=== PATIENT | female | born 2000 | race Caucasian/White ===

== ENCOUNTER 2021-07-01 21:00 | Inpatient (IN) | payer OTHER ==
[~2021-07-01] VITALS: Ht 152.4 cm; Wt 86.2 kg
[2021-07-03] MEDS ORDERED: PRENATAL CAPLE1 EAC1 PO (07:57)
== END 2021-07-04 12:15 | disposition home or self-care (01) | DRG 832 ==
LOC: OBS/DEL 21:00 → LDR 07-02 20:14 → OBS/DEL 07-02 20:14 → LDR 07-04 12:15
PROVIDERS: ADMIT Obstetrics & Gynecology Obstetrics; ATTEND Obstetrics & Gynecology Obstetrics
PROC: 4A1HXFZ Monitoring of Products of Conception, Cardiac Rhythm, External Approach (ICD-10-PCS; principal; 2021-07-02)
DX: O23.43 Unspecified infection of urinary tract in pregnancy, third trimester (principal); N39.0 Urinary tract infection, site not specified; Z3A.36 36 weeks gestation of pregnancy

== ENCOUNTER 2021-07-14 10:53 | Inpatient (IN) | payer OTHER ==
[~2021-07-14] VITALS: Ht 152.4 cm; Wt 3.2 kg
[~2021-07-14 10:53] MED LIST: PRENATAL CAPLE1 EAC1 PO
[2021-07-15] MEDS ORDERED: LEVOTHYROXINE25 MCG PO (10:21)
[2021-07-15] MEDS ORDERED: IRON325 MG PO (10:21)
== END 2021-07-23 12:29 | disposition home or self-care (01) | DRG 786 ==
LOC: OBS/DEL 10:53 → LDR 07-15 09:31 → OBS/DEL 07-15 09:31 → LDR 07-16 13:49 → OB/GYN 07-21 13:11
PROVIDERS: ADMIT Obstetrics & Gynecology Obstetrics; ATTEND Obstetrics & Gynecology Obstetrics
PROC: B24BZZZ Ultrasonography of Heart with Aorta (ICD-10-PCS; 2021-07-14)
PROC: 4A1HXFZ Monitoring of Products of Conception, Cardiac Rhythm, External Approach (ICD-10-PCS; 2021-07-15)
PROC: BY4FZZZ Ultrasonography of Third Trimester, Single Fetus (ICD-10-PCS; 2021-07-16)
PROC: 10D00Z1 Extraction of Products of Conception, Low, Open Approach (ICD-10-PCS; principal; 2021-07-20 12:15)
DX: O76 Abnormality in fetal heart rate and rhythm complicating labor and delivery (principal); O99.42 Diseases of the circulatory system complicating childbirth; O75.3 Other infection during labor; N39.0 Urinary tract infection, site not specified; R00.0 Tachycardia, unspecified; O99.52 Diseases of the respiratory system complicating childbirth; J06.9 Acute upper respiratory infection, unspecified; J45.909 Unspecified asthma, uncomplicated; O99.284 Endocrine, nutritional and metabolic diseases complicating childbirth; E03.9 Hypothyroidism, unspecified; Z3A.38 38 weeks gestation of pregnancy; Z37.0 Single live birth

== ENCOUNTER 2024-01-19 15:21 | Outpatient (CLI) | payer OTHER ==
[~2024-01-19 15:21] MED LIST changes: +IRON325 MG PO; +LEVOTHYROXINE25 MCG PO
== END 2024-01-19 15:23 | disposition home or self-care (01) ==
LOC: PRENATAL 15:21
PROVIDERS: ATTEND Obstetrics & Gynecology Maternal & Fetal Medicine
DX: O35.9XX0 Maternal care for (suspected) fetal abnormality and damage, unspecified, not applicable or unspecified (principal); O35.3XX0 Maternal care for (suspected) damage to fetus from viral disease in mother, not applicable or unspecified; O44.02 Complete placenta previa NOS or without hemorrhage, second trimester; O34.219 Maternal care for unspecified type scar from previous cesarean delivery; O99.282 Endocrine, nutritional and metabolic diseases complicating pregnancy, second trimester; O99.212 Obesity complicating pregnancy, second trimester; O99.891 Other specified diseases and conditions complicating pregnancy; Z3A.19 19 weeks gestation of pregnancy

== ENCOUNTER 2024-04-03 03:15 | Outpatient (CLI) | payer OTHER ==
[~2024-04-03] VITALS: Ht 154.9 cm; Wt 80.3 kg
[2024-04-03 02:08] VITALS: BP 105/74; O2SAT 97
[2024-04-03] MEDS ORDERED: PRENATAL TABLE1 EAC1 PO (03:27)
[2024-04-03] MEDS ORDERED: HIERRO PO (03:27)
[2024-04-03] MEDS ORDERED: RINGERS SOLUTION,LACTATED 1,000 ML IV SCH (03:30)
[2024-04-03 03:47] LABS: URINE APPEARANCE Clear; URINE BACTERIA 47.8 uL (0.0-1933); URINE BILIRRUBIN Negative (NEGATIVE); URINE BLOOD Negative; URINE COLOR Yellow; URINE EPITHELIAL CELLS 28.7 uL (0.0-38.8); URINE GLUCOSE Negative (NEGATIVE); URINE KETONE Negative (NEGATIVE); URINE LEUKOCYTE Negative; URINE NITRATE Negative; URINE PROTEIN Negative (NEGATIVE); URINE UROBILINOGEN 0.2 E.U./dl; URINE WBC 5.2 uL (0.0-23.2)
[2024-04-03 03:47] LABS: HEMATOCRIT 27.4 % (36.0-45.00); HEMOGLOBIN 9.3 g/dL (12.0-15.00); MEAN CELL VOLUME 78.6 fL (80.00-100.00); MEAN CORPUSCULAR HEMOGLOBIN 26.6 pg (27.00-32.0); MEAN CORPUSCULAR HGB CONC 33.8 g/dl (32.0-36.0); PLATELET COUNT 235 K/uL (150-450); RED BLOOD COUNT 3.49 M/uL (4.00-6.00); RED CELL DISTRIBUTION WIDTH 14.6 % (11.5-14.5)
[2024-04-03 03:51] LABS: URINE RBC 0.7 uL (0.0-20.8)
[2024-04-03 04:10] LABS: ALBUMIN 2.4 gm/dL (3.4-5.0); BILIRUBIN TOTAL 0.11 mg/dL (0.3-1.2); CALCIUM 8.7 mg/dL (8.5-10.1); CREATININE SERUM 0.48 mg/dL (0.55-1.02); GFR 158.89; GLOBULINA 3.3 G/DL (2.4-3.5); POTASSIUM 4.02 mEq/L (3.5-5.1); TOTAL PROTEIN 5.7 gm/dL (6.4-8.2)
[2024-04-03] MEDS ORDERED: LEVOTHYROXINE SODIUM 25 MCG TABLET PO SCH (06:00)
[2024-04-03 07:35] VITALS: BP 107/72
[2024-04-03 11:24] VITALS: BP 95/67
== END 2024-04-03 13:14 | disposition left against medical advice (07) ==
LOC: OBS/DEL 03:15
PROVIDERS: Specialist; ATTEND Obstetrics & Gynecology Obstetrics
DX: O36.8130 Decreased fetal movements, third trimester, not applicable or unspecified (principal); Z3A.30 30 weeks gestation of pregnancy; R10.2 Pelvic and perineal pain

== ENCOUNTER 2024-05-25 14:49 | Inpatient (IN) | payer OTHER ==
[~2024-05-25] VITALS: Ht 152.4 cm; Wt 88.9 kg
[~2024-05-25 14:49] MED LIST changes: +HIERRO PO; +PRENATAL TABLE1 EAC1 PO
[2024-05-25] MEDS ORDERED: RINGERS SOLUTION,LACTATED 1,000 ML IV SCH (15:00)
[2024-05-25 15:05] VITALS: BP 111/73
[2024-05-25 16:50] LABS: HEMATOCRIT 32.9 % (36.0-45.00); HEMOGLOBIN 10.5 g/dL (12.0-15.00); MEAN CELL VOLUME 78.8 fL (80.00-100.00); MEAN CORPUSCULAR HEMOGLOBIN 25.2 pg (27.00-32.0); PLATELET COUNT 207 K/uL (150-450); RED BLOOD COUNT 4.17 M/uL (4.00-6.00); RED CELL DISTRIBUTION WIDTH 16.3 % (11.5-14.5)
[2024-05-25 16:51] LABS: PH,URINE 6.5 (5.0-8.0); URINE APPEARANCE Clear; URINE BILIRRUBIN Negative (NEGATIVE); URINE BLOOD Negative; URINE COLOR Yellow; URINE GLUCOSE Negative (NEGATIVE); URINE KETONE Negative (NEGATIVE); URINE LEUKOCYTE Trace; URINE NITRATE Negative; URINE PROTEIN Trace (NEGATIVE)
[2024-05-25 16:57] LABS: URINE BACTERIA 418.2 uL (0.0-1933); URINE EPITHELIAL CELLS 77.7 uL (0.0-38.8)
[2024-05-25 17:04] LABS: URINE RBC 1.2 uL (0.0-20.8)
[2024-05-25 17:12] LABS: ALBUMIN 2.5 gm/dL (3.4-5.0); BILIRUBIN TOTAL 0.19 mg/dL (0.3-1.2); CALCIUM 8.7 mg/dL (8.5-10.1); CREATININE SERUM 0.49 mg/dL (0.55-1.02); GFR 155.16; GLOBULINA 3.5 G/DL (2.4-3.5); POTASSIUM 4.41 mEq/L (3.5-5.1)
[2024-05-25 17:13] LABS: INR 0.94; PARTIAL THROMBOPLASTIN TIME 28.3 SECONDS (22.0-34.0); PROTHROMBIN TIME 10.3 SECONDS (9.0-11.5)
[2024-05-25] MEDS ORDERED: OXYTOCIN 10 UNITS/ML VIAL IV ONE (19:45)
[2024-05-25] MEDS ORDERED: ERYTHROMYCIN BASE OPHT 1GM EACH TUBE OP ONE (19:45)
[2024-05-25] MEDS ORDERED: MORPHINE SULFATE 4 MG/ML CARTRIDGE IV PRN (20:30)
[2024-05-25] MEDS ORDERED: MORPHINE SULFATE 4 MG/ML VIAL IV ONE ×2 (21:40→22:30)
[2024-05-25] MEDS ORDERED: OXYTOCIN 1,000 ML IV ONE (23:00)
[2024-05-26] MEDS ORDERED: ACETAMINOPHEN 325 MG TABLET PO SCH
[2024-05-26] MEDS ORDERED: PROMETHAZINE HCL 25 MG/ML AMPUL IM SCH
[2024-05-26] MEDS ORDERED: MEPERIDINE HCL/PF 50 MG/ML VIAL IM SCH
[2024-05-26 04:07] VITALS: BP 110/71
[2024-05-26] MEDS ORDERED: IBUprofen 400 MG TABLET PO SCH (09:00)
[2024-05-26 09:17] VITALS: BP 101/62
[2024-05-26 12:00] VITALS: BP 116/67
[2024-05-27 00:20] VITALS: BP 120/80
[2024-05-27 05:56] VITALS: BP 100/64
[2024-05-27] MEDS ORDERED: LEVOTHYROXINE SODIUM 25 MCG TABLET PO SCH (06:00)
[2024-05-27 09:17] VITALS: BP 125/84
== END 2024-05-27 14:53 | disposition home or self-care (01) | DRG 785 ==
LOC: LDR 14:49 → OB/GYN 21:06
PROVIDERS: ADMIT Obstetrics & Gynecology Obstetrics; ATTEND Obstetrics & Gynecology Obstetrics
PROC: 0UB70ZZ Excision of Bilateral Fallopian Tubes, Open Approach (ICD-10-PCS; 2024-05-25)
PROC: 4A1HXCZ Monitoring of Products of Conception, Cardiac Rate, External Approach (ICD-10-PCS; 2024-05-25)
PROC: 10D00Z1 Extraction of Products of Conception, Low, Open Approach (ICD-10-PCS; principal; 2024-05-25 20:30)
DX: O34.211 Maternal care for low transverse scar from previous cesarean delivery (principal); Z3A.37 37 weeks gestation of pregnancy; Z37.0 Single live birth; Z30.2 Encounter for sterilization